=== PATIENT | female | born 1965 | race Caucasian/White ===

== ENCOUNTER 2019-05-28 01:18 | Emergency (ER) | payer BC ==
[~2019-05-28] VITALS: Ht 165.1 cm; Wt 64.0 kg
[2019-05-28 01:23] VITALS: BP 120/78
== END 2019-05-28 01:42 | disposition left against medical advice (07) ==
LOC: ER 01:18
DX: Z53.21 Procedure and treatment not carried out due to patient leaving prior to being seen by health care provider (principal)